=== PATIENT | female | born 1970 | race Caucasian/White ===

== ENCOUNTER 2019-11-20 13:08 | Emergency (ER) | payer MEDICARE, OTHER, SELFPAY ==
[2019-11-20 13:27] VITALS: BP 202/119; PULSE 117; RESP 20; TEMP 36.7; O2SAT 100; BMI 26.5
--- NOTE | 2019-11-20 13:31 | PC.NURSE ---
notified ER MD of pt BP 202/119, pt reports a headache and states she feels like her bp is elevated. Pt reports she takes metoprolol daily and has had her medications today. will continue to monitor.
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
[2019-11-20 13:37] LABS: Microscopic, Urine URINE MICROSCOPIC (MICROSCOPIC)
[2019-11-20 13:43] LABS: Appearance,Urine CLOUDY (Clear); Bilirubin,Urine Negative (Negative); Blood, Urine 3+ (Negative); Color,Urine YELLOW (Yellow); Glucose,Urine (UA) Negative (Negative); Ketones,Urine Negative (Negative); Leukocyte Esterase,Urine 2+ (Negative); Nitrate,Urine POSITIVE (Negative); Protein,Urine Negative (Negative); Specific Gravity, Urine 1.015 (1.005-1.030); Urobilinogen,Urine 0.2 EU/dl (0.2)
[2019-11-20 13:54] LABS: Amorphous Sediment,Urine 2+ /lpf; Bacteria,Urine 2+ /lpf; RBC,Urine 50-100 #/hpf (0-3)
[2019-11-20 14:08] VITALS: BP 179/99; PULSE 100; RESP 17; TEMP 36.7; O2SAT 99
== END 2019-11-20 14:11 | disposition home or self-care (01) ==
PROVIDERS: Emergency Provider Emergency Medicine; PCP Nurse Practitioner Family
DX: A60.09 Herpesviral infection of other urogenital tract (principal); N30.01 Acute cystitis with hematuria; I10 Essential (primary) hypertension; Z88.0 Allergy status to penicillin; Z88.5 Allergy status to narcotic agent
CPT/HCPCS: 81001; 87086; 87088; 87186; 99282